=== PATIENT | female | born 1985 | race Asian ===

== ENCOUNTER 2020-11-10 10:06 | Outpatient (REF) | payer OTHER, SELFPAY ==
[2020-11-10 14:24] LABS: CT PCR NOT DETECTED (Not Detect.); NG PCR NOT DETECTED (Not Detect.)
[2020-11-11 09:52] LABS: BV Int Neg Control Negative (Negative); BV Int Pos Control Positive (Positive)
[2020-11-13 01:32] LABS: HPV mRNA E6/E7 rflx Not Detected (Not Detected)
== END 2020-11-10 10:07 | disposition home or self-care (01) ==
LOC: HO.LAB 10:06
PROVIDERS: Visit Provider Obstetrics & Gynecology
DX: Z01.419 Encounter for gynecological examination (general) (routine) without abnormal findings (principal); Z11.51 Encounter for screening for human papillomavirus (HPV); Z11.3 Encounter for screening for infections with a predominantly sexual mode of transmission; Z20.2 Contact with and (suspected) exposure to infections with a predominantly sexual mode of transmission; Z97.5 Presence of (intrauterine) contraceptive device
CPT/HCPCS: 36415; 87480; 87491; 87510; 87591; 87624; 87660; 88142

== ENCOUNTER 2021-09-22 10:51 | Outpatient (REF) | payer OTHER, SELFPAY ==
[2021-09-23 00:44] LABS: CT PCR NOT DETECTED (Not Detect.); NG PCR NOT DETECTED (Not Detect.)
== END 2021-09-22 10:52 | disposition home or self-care (01) ==
LOC: HO.LAB 10:51
PROVIDERS: PCP Internal Medicine; Visit Provider Advanced Practice Midwife
DX: Z01.419 Encounter for gynecological examination (general) (routine) without abnormal findings (principal); Z20.2 Contact with and (suspected) exposure to infections with a predominantly sexual mode of transmission
CPT/HCPCS: 87491; 87591

== ENCOUNTER → 2021-10-18 11:44 | Outpatient (BNVA) | payer OTHER, SELFPAY | PROVIDERS: PCP Internal Medicine; Visit Provider Obstetrics & Gynecology | DX: Z30.433 Encounter for removal and reinsertion of intrauterine contraceptive device (principal) | CPT/HCPCS: 58300; 58301; J7298 ==

== ENCOUNTER 2022-08-21 09:54 | Emergency (ER) | payer OTHER, SELFPAY ==
[2022-08-21 10:44] VITALS: BP 117/75; PULSE 82; RESP 18; TEMP 36.5; O2SAT 97; BMI 34.0
--- NOTE | 2022-08-21 12:23 | ED_ITS ---
HPI - Extremity Injury (Lower) General Chief Complaint: Extremity Injury, Lower Stated Complaint: L ankle inj Time Seen by Provider: 08/21/22 11:51 Source: patient Mode of arrival: wheelchair History of Present Illness HPI Narrative: 36-year-old female with no significant past medical history presenting to the ED complaining of left ankle/foot pain and swelling s/p twisting on last stair 2 days ago. Reports internally twisted ankle, fell to ground, denies head trauma or LOC. Has been minimally ambulatory since the incident. Denies numbness, tingling, weakness, injury to other area MD complaint: ankle injury Related Data Home Medications Medication Instructions Recorded Confirmed levonorgestrel 20 mcg/24 hours (8 intrauterine 06/20/22 08/03/22 yrs) 52 mg intrauterine device (Mirena) Previous Rx's Medication Instructions Recorded azithromycin 250 mg tablet See Rx Instructions PO .COMPLEX #6 08/03/22 (Zithromax Z-Rian) tabs prednisone 20 mg tablet 40 mg PO DAILY 5 days #10 tabs 08/03/22 Allergies Allergy/AdvReac Type Severity Reaction Status Date / Time Penicillins Allergy Mild HIVES Verified 08/21/22 10:43 Review of Systems Review of Systems: Constitutional: No Fever, No Chills ENT/Mouth: No Ear Pain, No Nasal Congestion, No Sinus Pain, No Hoarseness, No sore throat, No Rhinorrhea, No Swallowing Difficulty Cardiovascular: No Chest Pain, No SOB Respiratory: No Cough, No Sputum, No Wheezing Gastrointestinal: No Nausea, No Vomiting, No Diarrhea, No Constipation, No Abdominal pain Genitourinary: No Dysuria, No Urinary Frequency, No Hematuria, No Flank Pain Musculoskeletal: + joint pain, No Myalgias, + Joint Swelling Skin: No Skin Lesions, No rash Neuro: No Weakness, No Numbness, No Paresthesias Yes all other systems are reviewed and are negative Constitutional: Constitutional: Reports as per [facility] Past Medical History Attestation statement: The following information was validated with the patient. Family History Family History Paternal Grandmother Breast cancer Mother Substance use disorder Mental health disorder Father Mental health disorder Social History Social History Housing: House Alcohol intake: current Alcohol intake frequency: a few times a week Patient Tobacco Use Status: Current everyday Tobacco user Cigarettes Per Day: 10 e-Cigarette/Vaping Use: Currently Using Second Hand Smoke Exposure: No Advance Directives: No Advance Directives Information Provided: No service: No Current occupational status: employed Current occupation: [employer] Current occupational exposures/hazards: No Gender identity: Female Cognitive needs: No Hearing needs: No Vision needs: No Physical Exam Vital Signs: Vital Signs: Last Vital Signs Temp 97.7 F 08/21/22 10:44 Pulse 82 08/21/22 10:44 Resp 18 08/21/22 10:44 BP 117/75 08/21/22 10:44 Pulse Ox 97 08/21/22 10:44 O2 Del Method 08/21/22 10:44 BMI result Body Mass Index 34.0 Const: General: cooperative, healthy appearing and no acute distress Orientation/consciousness: patient oriented x3 Limitations: no limitations HEENT: Head: Yes normal to inspection and Yes atraumatic Ears: hearing grossly normal bilaterally General nose exam: Normal external nose present Face and sinus: Yes normal facial exam Eyes: General: appearance normal, both eyes and all related structures EOM: EOMs intact bilaterally Neck: Neck: Yes normal visual inspection and Yes no meningeal signs Resp: Effort & Inspection: normal respiratory effort and no respiratory distress Cardio: Rate: regular rate Heart sounds: S1 normal heart sound present and S2 normal heart sound present Peripheral pulses: dorsalis pedis present Skin: Rashes: no rashes Wounds: no wounds Neuro: General: patient oriented x3, tone normal and no meningeal signs Gait exam (Neuro): Normal gait present Extrem: Other: Left ankle/proximal foot with noted swelling and ecchymosis. Diffusely tender to palpation. Limited ROM ankle secondary to pain. Neurovascularly intact. Sensation intact to light touch. Knee nontender Course Course Course Narrative: XR foot LT min 3V/XR ankle LT min 3V IMPRESSION: No radiographic evidence of acute fracture malalignment in the ankle or foot. If this persistent clinical symptoms/clinical concern, recommend short-term follow-up radiographs. >> patient placed in Aircast and supplied with crutches Results discussed with patient including worrisome signs and symptoms and strict return precautions, and when to return to the emergency department. They verbalized understanding and feel safe for discharge at this time. Medical Decision Making Medical Decision Making MDM Narrative: 36-year-old female with no significant past medical history presenting to the ED complaining of left ankle/foot pain and swelling s/p twisting on last stair 2 days ago. On exam vital signs stable, NAD, nontoxic appearing, physical exam as above. Concern for ankle fracture versus sprain. No evidence of infection Plan: X-ray Differential Diagnosis Differential Diagnoses: The differential diagnosis associated with the presentation includes As above Procedures Orthopedic Splinting/Casting Injury #1: Side: left Lower Extremity Injury Location: ankle Lower Extremity Immobilizer: AirCast Other Orthopedic Equipment: crutches Discharge Plan Discharge Clinical Impression: Ankle sprain and strain Patient Disposition: Home, Self-Care Instructions: Ankle Sprain (ED), R.I.C.E. Treatment (ED) Additional Instructions: Your x-ray does not show a fracture. You have an ankle sprain Wear Aircast for comfort and stability. Use crutches as needed. Bear weight as tolerated. Take Tylenol and Motrin for pain and swelling. Ice and elevate. Follow up with her doctor If symptoms persist or worsen, area begins to look infected, pain becomes unbearable return to the ED Prescriptions: No Action azithromycin [Zithromax Z-Rian] 250 mg tablet See Rx Instructions PO .COMPLEX Qty: 6 0RF Rx Instructions: For 250 mg dose pack: take 500 mg today (day 1), then 250 mg for 4 days (days 2-5) PO prednisone 20 mg tablet 40 mg PO DAILY 5 Days Qty: 10 0RF Mirena 20 mcg/24 hours (8 yrs) 52 mg intrauterine device intrauterine Mirena 20 mcg/24 hours (7 yrs) 52 mg intrauterine device 1 device intrauterine ONCE Qty: 1 0RF Referrals: Eloisa Rodríguez MD [Primary Care Provider] - 1 week
== END 2022-08-21 12:42 | disposition home or self-care (01) ==
PROVIDERS: Emergency Provider Emergency Medicine; PCP Internal Medicine
DX: S93.402A Sprain of unspecified ligament of left ankle, initial encounter (principal); S96.912A Strain of unspecified muscle and tendon at ankle and foot level, left foot, initial encounter; W10.8XXA Fall (on) (from) other stairs and steps, initial encounter; F17.210 Nicotine dependence, cigarettes, uncomplicated; Y93.89 Activity, other specified; Y92.009 Unspecified place in unspecified non-institutional (private) residence as the place of occurrence of the external cause; Y99.9 Unspecified external cause status
CPT/HCPCS: 73610; 73630; 99283

== ENCOUNTER 2022-10-11 16:31 | Emergency (ER) | payer OTHER, SELFPAY ==
--- NOTE | 2022-10-11 16:45 | ED.PSYCH ---
HPI - Psych General Chief Complaint: Psychiatric Symptoms <Mary Sullivan CNP - Last Filed: 10/11/22 16:49> Stated Complaint: crisi need meds <Mary Sullivan CNP - Last Filed: 10/11/22 16:49> Time Seen by Provider: 10/11/22 19:56 <Mary Sullivan CNP - Last Filed: 10/11/22 16:49> Source: patient <Guzman Muhammad MD - Last Filed: 10/11/22 20:31> Mode of arrival: ambulatory <Guzman Muhammad MD - Last Filed: 10/11/22 20:31> Limitations: no limitations <Guzman Muhammad MD - Last Filed: 10/11/22 20:31> History of Present Illness HPI Narrative: Patient is a 36-year-old female who presents to emergency department for increasing anxiety. She reports that she was Diagnosed with bipolar disorder in 2019. She states increased stress at work, causing her mood to feel very elevated, ?scrambled?. Increasing stressors for the past 3-4 months, but significantly worse over the past few weeks. Denies SI/ HI/hallucination. Anxiety is becoming overwhelming. She is not currently prescribed any medications for over 1 year. Does not currently have a therapist or psychiatrist. She would like assistance in establishing care. She went to the walk-in clinic in [facility] associated with PCP office, and was advised to come to the emergency department on for assistants. She states ?I feel like I can not function?. Had a prior mental hospitalization in 2019 for a week. <Guzman Muhammad MD - Last Filed: 10/11/22 20:31> Related Data Home Medications: Home Medications Medication Instructions Recorded Confirmed No Known Home Meds 10/11/22 10/11/22 <Mary Sullivan CNP - Last Filed: 10/11/22 16:49> Allergies/Adverse Reactions: Allergies Allergy/AdvReac Type Severity Reaction Status Date / Time Penicillins Allergy Mild HIVES Verified 10/11/22 15:37 <Mary Sullivan CNP - Last Filed: 10/11/22 16:49> Review of Systems Review of Systems: All other systems are reviewed and are negative Constitutional: Reports as per HPI and Reports no additional constitutional complaints Eyes: Reports as per HPI and Reports no additional eye complaints Reports system reviewed and no additional complaints, except as documented Cardiovascular: Reports as per HPI and Reports no additional cardiovascular complaints Respiratory: Reports as per HPI and Reports no additional respiratory complaints Gastrointestinal: Reports as per HPI and Reports no additional gastrointestinal complaints Genitourinary: Reports no additional female genitourinary complaints Musculoskeletal: Reports no additional musculoskeletal complaints Skin/Breast: Reports system reviewed and no additional complaints, except as docu Psychiatric: Reports no additional psychiatric complaints Endocrine: Reports no additional endocrine complaints Hematologic/Lymphatic: Reports no additional hematologic/lymphatic complaints Allergic/Immunologic: Reports no additional allergic/immunologic complaints Reports system reviewed and no additional complaints, except as documented and Reports Abnormal speech present <Guzman Muhammad MD - Last Filed: 10/11/22 20:31> [facility] Family History Family History: Family History Paternal Grandmother Breast cancer Mother Substance use disorder Mental health disorder Father Mental health disorder <Mary Sullivan CNP - Last Filed: 10/11/22 16:49> Social History Social History: Social History Housing: House Alcohol intake: current Alcohol intake frequency: a few times a week Patient Tobacco Use Status: Current everyday Tobacco user Cigarettes Per Day: 10 e-Cigarette/Vaping Use: Currently Using Second Hand Smoke Exposure: No Advance Directives: No Advance Directives Information Provided: No Healthcare Proxy: No Guardian: No service: No Current occupational status: employed Current occupation: [employer] Current occupational exposures/hazards: No Gender identity: Female Cognitive needs: No Hearing needs: No Vision needs: No <Mary Sullivan CNP - Last Filed: 10/11/22 16:49> Physical Exam Vital Signs: Vital Signs: Last Vital Signs Temp 98 F 10/11/22 16:47 Pulse 83 10/11/22 16:47 Resp 18 10/11/22 16:47 BP 147/87 H 10/11/22 16:47 Pulse Ox 98 10/11/22 16:47 O2 Del Method 10/11/22 16:47 BMI result Body Mass Index 34.0 <Mary Sullivan CNP - Last Filed: 10/11/22 16:49> Vital Signs: Last Vital Signs Temp 98 F 10/11/22 16:47 Pulse 83 10/11/22 16:47 Resp 18 10/11/22 16:47 BP 147/87 H 10/11/22 16:47 Pulse Ox 98 10/11/22 16:47 O2 Del Method 10/11/22 16:47 BMI result Body Mass Index 34.0 Vital signs have been reviewed as appeared to be correct. Blood pressure normal. Heart rate normal. Respiration rate normal. Temperature normal. Oxygen saturation normal. <Guzman Muhammad MD - Last Filed: 10/11/22 20:31> Vital Signs: Last Vital Signs Temp 98 F 10/11/22 16:47 Pulse 83 10/11/22 16:47 Resp 18 10/11/22 16:47 BP 147/87 H 10/11/22 16:47 Pulse Ox 98 10/11/22 16:47 O2 Del Method 10/11/22 16:47 BMI result Body Mass Index 34.0 <Lyla Grissom MD - Last Filed: 10/12/22 05:20> Appearance: Alert. Oriented X3. No acute distress. Head: Normal external exam. Normocephalic. Atraumatic. No Bledsoe signs noted. No raccoon eyes noted Eyes: PERRLA. EOMI. Conjunctiva and sclera normal. Eyelids normal. ENT: TM's Normal. Pharynx normal. Uvula midline. Moist mucous membranes. No trismus noted. No drooling noted. No muffled voice noted. Neck: Normal inspection. Neck supple. FROM. No adenopathy. Thyroid Normal. No meningeal signs. No neck mass noted. CVS: Normal heart rate and rhythm. Heart sound normal. No murmurs noted. Pulses normal throughout. Respiratory: No respiratory distress. Painless inspiration. Breath sounds normal. No wheezes/rales/rhonchi noted. Chest nontender. No accessory muscle usage noted or decreased air movement noted. Abdomen: Soft and nontender. Bowel sounds normal in all 4 quadrants. No distention noted. No organomegaly noted. No visible injury noted. Back: No CVA tenderness. Full range of motion noted. Skin: Skin warm and dry. Normal skin color. Normal skin turgor. No rashes/lesions/lacerations noted. Extremities: No lower extremity edema. Extremities exhibit normal range of motion. Extremities nontender. Neuro: Oriented X 3. Cranial nerve exam: II-XII are grossly intact No motor deficit. No sensory deficit. Reflexes normal. Patient Orientation: Person, Place, Time and Situation, okay hygiene and grooming. Fair eye contact, attentive, no tics or tremors. Level of Consciousness: Awake, Appropriate and Alert Patient Behavior: Appropriate, Guarded, Cooperative and Anxious Mood Description: Constricted, Blunted and Apprehensive Affect Description: Constricted, Blunted and Apprehensive Patient Cognition Impaired: No Ability to Follow Directions: Excellent Speech Pattern: Clear, Appropriate and Spontaneous Speech, nonpressured, spontaneous with regular rate and rhythm, normal volume and prosody. No dysarthria. Memory Description: Intact, Immediate Intact and Short Term Intact Hallucinations: None Delusions: Not Present Thought Process: Intact Thought Content: positive for Intact, positive for Logical, denies Suicidal Ideation and denies Homicidal Ideation. Depressive Symptoms: Not present. Judgement and Insight: Limited but adequate. <Guzman Muhammad MD - Last Filed: 10/11/22 20:31> Course Course Course Narrative: This is an RME: Additional HPI, ROS, PE not included below will be deferred to primary provider. Patient is a 36-year-old female who presents to emergency department for increasing anxiety. She reports that she was Diagnosed with bipolar disorder in 2019. She states increased stress at work, causing her mood to feel very elevated, ?scrambled?. Increasing stressors for the past 3-4 months, but significantly worse over the past few weeks. Denies SI/ HI. Anxiety is becoming overwhelming. She is not currently prescribed any medications for over 1 year. Does not currently have a therapist or psychiatrist. She would like assistance in establishing care. She went to the walk-in clinic in [facility] associated with PCP office, and was advised to come to the emergency department on for assistants. She states ?I feel like I can not function?. PE: She is calm and cooperative during triage. No acute distress. Plan: Referral to care team <Mary Sullivan CNP - Last Filed: 10/11/22 16:49> Medications Administered Discontinued Medications Generic Name Dose Route Start Last Admin Trade Name Freq PRN Reason Stop Dose Admin Olanzapine 2.5 mg 10/11/22 20:17 10/11/22 21:28 Olanzapine 2.5 Mg Tablet PO 10/11/22 20:18 2.5 mg ONCE ONE Administration <Mary Sullivan CNP - Last Filed: 10/11/22 16:49> Medications Administered Discontinued Medications Generic Name Dose Route Start Last Admin Trade Name Freq PRN Reason Stop Dose Admin Olanzapine 2.5 mg 10/11/22 20:17 10/11/22 21:28 Olanzapine 2.5 Mg Tablet PO 10/11/22 20:18 2.5 mg ONCE ONE Administration <Guzman Muhammad MD - Last Filed: 10/11/22 20:31> Medications Administered Discontinued Medications Generic Name Dose Route Start Last Admin Trade Name Freq PRN Reason Stop Dose Admin Olanzapine 2.5 mg 10/11/22 20:17 10/11/22 21:28 Olanzapine 2.5 Mg Tablet PO 10/11/22 20:18 2.5 mg ONCE ONE Administration <Lyla Grissom MD - Last Filed: 10/12/22 05:20> Medical Decision Making Medical Decision Making MDM Narrative: -patient was re-evaluated by the care team at 05:20. Patient is not suicidal or homicidal, patient has been off of meds for 2+ years. At this time, the care team spoke with the patient and they agree that the best course of action for the patient is to discharge her home early this morning, patient will go to a partial program. <Lyla Grissom MD - Last Filed: 10/12/22 05:20> Differential Diagnosis Differential Diagnoses: The differential diagnosis associated with the presentation includes (Psychosis, anxiety, medical clearance, substance abuse.) <Guzman Muhammad MD - Last Filed: 10/11/22 20:31> Lab Data Result Diagrams: 10/11/22 20:23 10/11/22 00:52 <Mary Sullivan CNP - Last Filed: 10/11/22 16:49> Labs: Lab Results 10/11/22 10/11/22 10/11/22 Range/Units 00:52 20: 20:23 WBC 10.7 (4.8-10.8) X10*3/uL RBC 4.82 (4.20-5.50) X10*6/uL Hgb 14.1 (12.0-16.0) g/dl Hct 41.9 (37.0-47.0) % MCV 86.9 (80.0-98.0) fL MCH 29.3 (27.0-33.0) pg MCHC 33.7 (31.0-35.0) g/dl RDW 12.5 (11.0-16.0) % Plt Count 346 (160-400) X10*3/uL MPV 8.6 L (9.4-12.3) fL Immature Gran % (Auto) 0.3 (0.0-0.4) % Neut % (Auto) 56.4 (45-73) % Lymph % (Auto) 34.4 (20-40) % [place] % (Auto) 6.1 (2-11) % Eos % (Auto) 2.1 (0-4) % Baso % (Auto) 0.7 (0-2) % Lymph # (Auto) 3.7 (1.2-4.9) X10*3/uL [place] # (Auto) 0.7 (0.1-1.2) X10*3/uL Eos # (Auto) 0.2 (0.0-0.4) X10*3/uL Baso # (Auto) 0.1 (0.0-0.2) X10*3/uL Abs Immat Gran (auto) 0.03 (0.00-0.03) X10*3/uL Absolute Neuts (auto) 6.1 (2.0-8.3) x10*3/uL Absolute Nucleated RBC 0.000 (0.0-0.012) X10*3/uL Nucleated RBC % (auto) 0.0 (0.0-0.2) /100WBC Sodium 140 (135-145) mmol/L Potassium 4.0 (3.3-5.1) mmol/L Chloride 108 (96-108) mmol/L Carbon Dioxide 22 (22-29) mmol/L Anion Gap 14 (12-20) BUN 8 L (9-16) mg/dL Creatinine 0.87 (0.5-1.4) mg/dL Estim Creat Clear Calc 87.4 Estimated GFR > 60 Random Glucose 84 (60-115) mg/dL Calcium 9.2 (8.4-10.2) mg/dL Total Bilirubin 0.3 (0.0-1.0) mg/dL AST 15 (5-31) U/L ALT 18 (0-31) U/L Alkaline Phosphatase 47 (39-117) U/L Total Protein 6.9 (6.5-8.0) g/dL Albumin 4.3 (3.5-5.0) g/dL Urine Color Urine Appearance Urine pH (5.0-9.0) Ur Specific [place] (1.005-1.025) Urine Protein (Neg-Trace) mg/dL Urine Glucose (UA) (Negative) mg/dL Urine Ketones (Negative) mg/dL Urine Blood (Negative) Urine Nitrite (Negative) Ur Leukocyte Esterase (Negative) Urine RBC (0-2) /HPF Urine WBC (0-5) /HPF Ur Squamous Epith Cells (0-2) /HPF Urine Bacteria (None Seen) Hyaline Casts (0-2) /LPF Urine Test (NEGATIVE) Urine Opiates Screen (Not Detect) Urine Fentanyl Screen (Not Detect) Ur Barbiturates Screen (Not Detect) Ur Phencyclidine Scrn (Not Detect) Ur Amphetamines Screen (Not Detect) U Benzodiazepines Scrn (Not Detect) Urine Cocaine Screen (Not Detect) U Marijuana (THC) Screen (Not Detect) Ethyl Alcohol mg/dL COVID-19 ([facility]TE) Negative (Negative) COVID-19 Clin Com See Note 10/11/22 10/11/22 10/11/22 Range/Units 20:23 21:52 21:52 WBC (4.8-10.8) X10*3/uL RBC (4.20-5.50) X10*6/uL Hgb (12.0-16.0) g/dl Hct (37.0-47.0) % MCV (80.0-98.0) fL MCH (27.0-33.0) pg MCHC (31.0-35.0) g/dl RDW (11.0-16.0) % Plt Count (160-400) X10*3/uL MPV (9.4-12.3) fL Immature Gran % (Auto) (0.0-0.4) % Neut % (Auto) (45-73) % Lymph % (Auto) (20-40) % [place] % (Auto) (2-11) % Eos % (Auto) (0-4) % Baso % (Auto) (0-2) % Lymph # (Auto) (1.2-4.9) X10*3/uL [place] # (Auto) (0.1-1.2) X10*3/uL Eos # (Auto) (0.0-0.4) X10*3/uL Baso # (Auto) (0.0-0.2) X10*3/uL Abs Immat Gran (auto) (0.00-0.03) X10*3/uL Absolute Neuts (auto) (2.0-8.3) x10*3/uL Absolute Nucleated RBC (0.0-0.012) X10*3/uL Nucleated RBC % (auto) (0.0-0.2) /100WBC Sodium (135-145) mmol/L Potassium (3.3-5.1) mmol/L Chloride (96-108) mmol/L Carbon Dioxide (22-29) mmol/L Anion Gap (12-20) BUN (9-16) mg/dL Creatinine (0.5-1.4) mg/dL Estim Creat Clear Calc Estimated GFR Random Glucose (60-115) mg/dL Calcium (8.4-10.2) mg/dL Total Bilirubin (0.0-1.0) mg/dL AST (5-31) U/L ALT (0-31) U/L Alkaline Phosphatase (39-117) U/L Total Protein (6.5-8.0) g/dL Albumin (3.5-5.0) g/dL Urine Color Yellow Urine Appearance Clear Urine pH 6.0 (5.0-9.0) Ur Specific [place] 1.010 (1.005-1.025) Urine Protein Negative (Neg-Trace) mg/dL Urine Glucose (UA) Negative (Negative) mg/dL Urine Ketones Negative (Negative) mg/dL Urine Blood Negative (Negative) Urine Nitrite Negative (Negative) Ur Leukocyte Esterase Moderate (2+) H (Negative) Urine RBC 0-2 (0-2) /HPF Urine WBC 11-20 H (0-5) /HPF Ur Squamous Epith Cells 6-10 (0-2) /HPF Urine Bacteria Trace (None Seen) Hyaline Casts 0-2 (0-2) /LPF Urine Test NEGATIVE (NEGATIVE) Urine Opiates Screen (Not Detect) Urine Fentanyl Screen (Not Detect) Ur Barbiturates Screen (Not Detect) Ur Phencyclidine Scrn (Not Detect) Ur Amphetamines Screen (Not Detect) U Benzodiazepines Scrn (Not Detect) Urine Cocaine Screen (Not Detect) U Marijuana (THC) Screen (Not Detect) Ethyl Alcohol < 10 mg/dL COVID-19 ([facility]TE) (Negative) COVID-19 Clin Com 10/11/22 Range/Units 21:52 WBC (4.8-10.8) X10*3/uL RBC (4.20-5.50) X10*6/uL Hgb (12.0-16.0) g/dl Hct (37.0-47.0) % MCV (80.0-98.0) fL MCH (27.0-33.0) pg MCHC (31.0-35.0) g/dl RDW (11.0-16.0) % Plt Count (160-400) X10*3/uL MPV (9.4-12.3) fL Immature Gran % (Auto) (0.0-0.4) % Neut % (Auto) (45-73) % Lymph % (Auto) (20-40) % [place] % (Auto) (2-11) % Eos % (Auto) (0-4) % Baso % (Auto) (0-2) % Lymph # (Auto) (1.2-4.9) X10*3/uL [place] # (Auto) (0.1-1.2) X10*3/uL Eos # (Auto) (0.0-0.4) X10*3/uL Baso # (Auto) (0.0-0.2) X10*3/uL Abs Immat Gran (auto) (0.00-0.03) X10*3/uL Absolute Neuts (auto) (2.0-8.3) x10*3/uL Absolute Nucleated RBC (0.0-0.012) X10*3/uL Nucleated RBC % (auto) (0.0-0.2) /100WBC Sodium (135-145) mmol/L Potassium (3.3-5.1) mmol/L Chloride (96-108) mmol/L Carbon Dioxide (22-29) mmol/L Anion Gap (12-20) BUN (9-16) mg/dL Creatinine (0.5-1.4) mg/dL Estim Creat Clear Calc Estimated GFR Random Glucose (60-115) mg/dL Calcium (8.4-10.2) mg/dL Total Bilirubin (0.0-1.0) mg/dL AST (5-31) U/L ALT (0-31) U/L Alkaline Phosphatase (39-117) U/L Total Protein (6.5-8.0) g/dL Albumin (3.5-5.0) g/dL Urine Color Urine Appearance Urine pH (5.0-9.0) Ur Specific [place] (1.005-1.025) Urine Protein (Neg-Trace) mg/dL Urine Glucose (UA) (Negative) mg/dL Urine Ketones (Negative) mg/dL Urine Blood (Negative) Urine Nitrite (Negative) Ur Leukocyte Esterase (Negative) Urine RBC (0-2) /HPF Urine WBC (0-5) /HPF Ur Squamous Epith Cells (0-2) /HPF Urine Bacteria (None Seen) Hyaline Casts (0-2) /LPF Urine Test (NEGATIVE) Urine Opiates Screen Not Detected (Not Detect) Urine Fentanyl Screen Not Detected (Not Detect) Ur Barbiturates Screen Not Detected (Not Detect) Ur Phencyclidine Scrn Not Detected (Not Detect) Ur Amphetamines Screen Not Detected (Not Detect) U Benzodiazepines Scrn Not Detected (Not Detect) Urine Cocaine Screen Not Detected (Not Detect) U Marijuana (THC) Screen POSITIVE H (Not Detect) Ethyl Alcohol mg/dL COVID-19 ([facility]TE) (Negative) COVID-19 Clin Com <Mary Sullivan, NABILA - Last Filed: 10/11/22 16:49> Lab Results 10/11/22 10/11/22 10/11/22 Range/Units 00:52 20:23 20:23 WBC 10.7 (4.8-10.8) X10*3/uL RBC 4.82 (4.20-5.50) X10*6/uL Hgb 14.1 (12.0-16.0) g/dl Hct 41.9 (37.0-47.0) % MCV 86.9 (80.0-98.0) fL MCH 29.3 (27.0-33.0) pg MCHC 33.7 (31.0-35.0) g/dl RDW 12.5 (11.0-16.0) % Plt Count 346 (160-400) X10*3/uL MPV 8.6 L (9.4-12.3) fL Immature Gran % (Auto) 0.3 (0.0-0.4) % Neut % (Auto) 56.4 (45-73) % Lymph % (Auto) 34.4 (20-40) % [place] % (Auto) 6.1 (2-11) % Eos % (Auto) 2.1 (0-4) % Baso % (Auto) 0.7 (0-2) % Lymph # (Auto) 3.7 (1.2-4.9) X10*3/uL [place] # (Auto) 0.7 (0.1-1.2) X10*3/uL Eos # (Auto) 0.2 (0.0-0.4) X10*3/uL Baso # (Auto) 0.1 (0.0-0.2) X10*3/uL Abs Immat Gran (auto) 0.03 (0.00-0.03) X10*3/uL Absolute Neuts (auto) 6.1 (2.0-8.3) x10*3/uL Absolute Nucleated RBC 0.000 (0.0-0.012) X10*3/uL Nucleated RBC % (auto) 0.0 (0.0-0.2) /100WBC Sodium 140 (135-145) mmol/L Potassium 4.0 (3.3-5.1) mmol/L Chloride 108 (96-108) mmol/L Carbon Dioxide 22 (22-29) mmol/L Anion Gap 14 (12-20) BUN 8 L (9-16) mg/dL Creatinine 0.87 (0.5-1.4) mg/dL Estim Creat Clear Calc 87.4 Estimated GFR > 60 Random Glucose 84 (60-115) mg/dL Calcium 9.2 (8.4-10.2) mg/dL Total Bilirubin 0.3 (0.0-1.0) mg/dL AST 15 (5-31) U/L ALT 18 (0-31) U/L Alkaline Phosphatase 47 (39-117) U/L Total Protein 6.9 (6.5-8.0) g/dL Albumin 4.3 (3.5-5.0) g/dL Urine Color Urine Appearance Urine pH (5.0-9.0) Ur Specific [place] (1.005-1.025) Urine Protein (Neg-Trace) mg/dL Urine Glucose (UA) (Negative) mg/dL Urine Ketones (Negative) mg/dL Urine Blood (Negative) Urine Nitrite (Negative) Ur Leukocyte Esterase (Negative) Urine RBC (0-2) /HPF Urine WBC (0-5) /HPF Ur Squamous Epith Cells (0-2) /HPF Urine Bacteria (None Seen) Hyaline Casts (0-2) /LPF Urine Test (NEGATIVE) Urine Opiates Screen (Not Detect) Urine Fentanyl Screen (Not Detect) Ur Barbiturates Screen (Not Detect) Ur Phencyclidine Scrn (Not Detect) Ur Amphetamines Screen (Not Detect) U Benzodiazepines Scrn (Not Detect) Urine Cocaine Screen (Not Detect) U Marijuana (THC) Screen (Not Detect) Ethyl Alcohol mg/dL COVID-19 ([facility]TE) Negative (Negative) COVID-19 Clin Com See Note 10/11/22 10/11/22 10/11/22 Range/Units 20:23 21:52 21:52 WBC (4.8-10.8) X10*3/uL RBC (4.20-5.50) X10*6/uL Hgb (12.0-16.0) g/dl Hct (37.0-47.0) % MCV (80.0-98.0) fL MCH (27.0-33.0) pg MCHC (31.0-35.0) g/dl RDW (11.0-16.0) % Plt Count (160-400) X10*3/uL MPV (9.4-12.3) fL Immature Gran % (Auto) (0.0-0.4) % Neut % (Auto) (45-73) % Lymph % (Auto) (20-40) % [place] % (Auto) (2-11) % Eos % (Auto) (0-4) % Baso % (Auto) (0-2) % Lymph # (Auto) (1.2-4.9) X10*3/uL [place] # (Auto) (0.1-1.2) X10*3/uL Eos # (Auto) (0.0-0.4) X10*3/uL Baso # (Auto) (0.0-0.2) X10*3/uL Abs Immat Gran (auto) (0.00-0.03) X10*3/uL Absolute Neuts (auto) (2.0-8.3) x10*3/uL Absolute Nucleated RBC (0.0-0.012) X10*3/uL Nucleated RBC % (auto) (0.0-0.2) /100WBC Sodium (135-145) mmol/L Potassium (3.3-5.1) mmol/L Chloride (96-108) mmol/L Carbon Dioxide (22-29) mmol/L Anion Gap (12-20) BUN (9-16) mg/dL Creatinine (0.5-1.4) mg/dL Estim Creat Clear Calc Estimated GFR Random Glucose (60-115) mg/dL Calcium (8.4-10.2) mg/dL Total Bilirubin (0.0-1.0) mg/dL AST (5-31) U/L ALT (0-31) U/L Alkaline Phosphatase (39-117) U/L Total Protein (6.5-8.0) g/dL Albumin (3.5-5.0) g/dL Urine Color Yellow Urine Appearance Clear Urine pH 6.0 (5.0-9.0) Ur Specific [place] 1.010 (1.005-1.025) Urine Protein Negative (Neg-Trace) mg/dL Urine Glucose (UA) Negative (Negative) mg/dL Urine Ketones Negative (Negative) mg/dL Urine Blood Negative (Negative) Urine Nitrite Negative (Negative) Ur Leukocyte Esterase Moderate (2+) H (Negative) Urine RBC 0-2 (0-2) /HPF Urine WBC 11-20 H (0-5) /HPF Ur Squamous Epith Cells 6-10 (0-2) /HPF Urine Bacteria Trace (None Seen) Hyaline Casts 0-2 (0-2) /LPF Urine Test NEGATIVE (NEGATIVE) Urine Opiates Screen (Not Detect) Urine Fentanyl Screen (Not Detect) Ur Barbiturates Screen (Not Detect) Ur Phencyclidine Scrn (Not Detect) Ur Amphetamines Screen (Not Detect) U Benzodiazepines Scrn (Not Detect) Urine Cocaine Screen (Not Detect) U Marijuana (THC) Screen (Not Detect) Ethyl Alcohol < 10 mg/dL COVID-19 ([facility]TE) (Negative) COVID-19 Clin Com 10/11/22 Range/Units 21:52 WBC (4.8-10.8) X10*3/uL RBC (4.20-5.50) X10*6/uL Hgb (12.0-16.0) g/dl Hct (37.0-47.0) % MCV (80.0-98.0) fL MCH (27.0-33.0) pg MCHC (31.0-35.0) g/dl RDW (11.0-16.0) % Plt Count (160-400) X10*3/uL MPV (9.4-12.3) fL Immature Gran % (Auto) (0.0-0.4) % Neut % (Auto) (45-73) % Lymph % (Auto) (20-40) % [place] % (Auto) (2-11) % Eos % (Auto) (0-4) % Baso % (Auto) (0-2) % Lymph # (Auto) (1.2-4.9) X10*3/uL [place] # (Auto) (0.1-1.2) X10*3/uL Eos # (Auto) (0.0-0.4) X10*3/uL Baso # (Auto) (0.0-0.2) X10*3/uL Abs Immat Gran (auto) (0.00-0.03) X10*3/uL Absolute Neuts (auto) (2.0-8.3) x10*3/uL Absolute Nucleated RBC (0.0-0.012) X10*3/uL Nucleated RBC % (auto) (0.0-0.2) /100WBC Sodium (135-145) mmol/L Potassium (3.3-5.1) mmol/L Chloride (96-108) mmol/L Carbon Dioxide (22-29) mmol/L Anion Gap (12-20) BUN (9-16) mg/dL Creatinine (0.5-1.4) mg/dL Estim Creat Clear Calc Estimated GFR Random Glucose (60-115) mg/dL Calcium (8.4-10.2) mg/dL Total Bilirubin (0.0-1.0) mg/dL AST (5-31) U/L ALT (0-31) U/L Alkaline Phosphatase (39-117) U/L Total Protein (6.5-8.0) g/dL Albumin (3.5-5.0) g/dL Urine Color Urine Appearance Urine pH (5.0-9.0) Ur Specific [place] (1.005-1.025) Urine Protein (Neg-Trace) mg/dL Urine Glucose (UA) (Negative) mg/dL Urine Ketones (Negative) mg/dL Urine Blood (Negative) Urine Nitrite (Negative) Ur Leukocyte Esterase (Negative) Urine RBC (0-2) /HPF Urine WBC (0-5) /HPF Ur Squamous Epith Cells (0-2) /HPF Urine Bacteria (None Seen) Hyaline Casts (0-2) /LPF Urine Test (NEGATIVE) Urine Opiates Screen Not Detected (Not Detect) Urine Fentanyl Screen Not Detected (Not Detect) Ur Barbiturates Screen Not Detected (Not Detect) Ur Phencyclidine Scrn Not Detected (Not Detect) Ur Amphetamines Screen Not Detected (Not Detect) U Benzodiazepines Scrn Not Detected (Not Detect) Urine Cocaine Screen Not Detected (Not Detect) U Marijuana (THC) Screen POSITIVE H (Not Detect) Ethyl Alcohol mg/dL COVID-19 ([facility]) (Negative) COVID-19 Clin Com <Guzman Muhammad MD - Last Filed: 10/11/22 20:31> Lab Results 10/11/22 10/11/22 10/11/22 Range/Units 00:52 20:23 20:23 WBC 10.7 (4.8-10.8) X10*3/uL RBC 4.82 (4.20-5.50) X10*6/uL Hgb 14.1 (12.0-16.0) g/dl Hct 41.9 (37.0-47.0) % MCV 86.9 (80.0-98.0) fL MCH 29.3 (27.0-33.0) pg MCHC 33.7 (31.0-35.0) g/dl RDW 12.5 (11.0-16.0) % Plt Count 346 (160-400) X10*3/uL MPV 8.6 L (9.4-12.3) fL Immature Gran % (Auto) 0.3 (0.0-0.4) % Neut % (Auto) 56.4 (45-73) % Lymph % (Auto) 34.4 (20-40) % [place] % (Auto) 6.1 (2-11) % Eos % (Auto) 2.1 (0-4) % Baso % (Auto) 0.7 (0-2) % Lymph # (Auto) 3.7 (1.2-4.9) X10*3/uL [place] # (Auto) 0.7 (0.1-1.2) X10*3/uL Eos # (Auto) 0.2 (0.0-0.4) X10*3/uL Baso # (Auto) 0.1 (0.0-0.2) X10*3/uL Abs Immat Gran (auto) 0.03 (0.00-0.03) X10*3/uL Absolute Neuts (auto) 6.1 (2.0-8.3) x10*3/uL Absolute Nucleated RBC 0.000 (0.0-0.012) X10*3/uL Nucleated RBC % (auto) 0.0 (0.0-0.2) /100WBC Sodium 140 (135-145) mmol/L Potassium 4.0 (3.3-5.1) mmol/L Chloride 108 (96-108) mmol/L Carbon Dioxide 22 (22-29) mmol/L Anion Gap 14 (12-20) BUN 8 L (9-16) mg/dL Creatinine 0.87 (0.5-1.4) mg/dL Estim Creat Clear Calc 87.4 Estimated GFR > 60 Random Glucose 84 (60-115) mg/dL Calcium 9.2 (8.4-10.2) mg/dL Total Bilirubin 0.3 (0.0-1.0) mg/dL AST 15 (5-31) U/L ALT 18 (0-31) U/L Alkaline Phosphatase 47 (39-117) U/L Total Protein 6.9 (6.5-8.0) g/dL Albumin 4.3 (3.5-5.0) g/dL Urine Color Urine Appearance Urine pH (5.0-9.0) Ur Specific [place] (1.005-1.025) Urine Protein (Neg-Trace) mg/dL Urine Glucose (UA) (Negative) mg/dL Urine Ketones (Negative) mg/dL Urine Blood (Negative) Urine Nitrite (Negative) Ur Leukocyte Esterase (Negative) Urine RBC (0-2) /HPF Urine WBC (0-5) /HPF Ur Squamous Epith Cells (0-2) /HPF Urine Bacteria (None Seen) Hyaline Casts (0-2) /LPF Urine Test (NEGATIVE) Urine Opiates Screen (Not Detect) Urine Fentanyl Screen (Not Detect) Ur Barbiturates Screen (Not Detect) Ur Phencyclidine Scrn (Not Detect) Ur Amphetamines Screen (Not Detect) U Benzodiazepines Scrn (Not Detect) Urine Cocaine Screen (Not Detect) U Marijuana (THC) Screen (Not Detect) Ethyl Alcohol mg/dL COVID-19 (DIAMANTE) Negative (Negative) COVID-19 Clin Com See Note 10/11/22 10/11/22 10/11/22 Range/Units 20:23 21:52 21:52 WBC (4.8-10.8) X10*3/uL RBC (4.20-5.50) X10*6/uL Hgb (12.0-16.0) g/dl Hct (37.0-47.0) % MCV (80.0-98.0) fL MCH (27.0-33.0) pg MCHC (31.0-35.0) g/dl RDW (11.0-16.0) % Plt Count (160-400) X10*3/uL MPV (9.4-12.3) fL Immature Gran % (Auto) (0.0-0.4) % Neut % (Auto) (45-73) % Lymph % (Auto) (20-40) % [place] % (Auto) (2-11) % Eos % (Auto) (0-4) % Baso % (Auto) (0-2) % Lymph # (Auto) (1.2-4.9) X10*3/uL [place] # (Auto) (0.1-1.2) X10*3/uL Eos # (Auto) (0.0-0.4) X10*3/uL Baso # (Auto) (0.0-0.2) X10*3/uL Abs Immat Gran (auto) (0.00-0.03) X10*3/uL Absolute Neuts (auto) (2.0-8.3) x10*3/uL Absolute Nucleated RBC (0.0-0.012) X10*3/uL Nucleated RBC % (auto) (0.0-0.2) /100WBC Sodium (135-145) mmol/L Potassium (3.3-5.1) mmol/L Chloride (96-108) mmol/L Carbon Dioxide (22-29) mmol/L Anion Gap (12-20) BUN (9-16) mg/dL Creatinine (0.5-1.4) mg/dL Estim Creat Clear Calc Estimated GFR Random Glucose (60-115) mg/dL Calcium (8.4-10.2) mg/dL Total Bilirubin (0.0-1.0) mg/dL AST (5-31) U/L ALT (0-31) U/L Alkaline Phosphatase (39-117) U/L Total Protein (6.5-8.0) g/dL Albumin (3.5-5.0) g/dL Urine Color Yellow Urine Appearance Clear Urine pH 6.0 (5.0-9.0) Ur Specific [place] 1.010 (1.005-1.025) Urine Protein Negative (Neg-Trace) mg/dL Urine Glucose (UA) Negative (Negative) mg/dL Urine Ketones Negative (Negative) mg/dL Urine Blood Negative (Negative) Urine Nitrite Negative (Negative) Ur Leukocyte Esterase Moderate (2+) H (Negative) Urine RBC 0-2 (0-2) /HPF Urine WBC 11-20 H (0-5) /HPF Ur Squamous Epith Cells 6-10 (0-2) /HPF Urine Bacteria Trace (None Seen) Hyaline Casts 0-2 (0-2) /LPF Urine Test NEGATIVE (NEGATIVE) Urine Opiates Screen (Not Detect) Urine Fentanyl Screen (Not Detect) Ur Barbiturates Screen (Not Detect) Ur Phencyclidine Scrn (Not Detect) Ur Amphetamines Screen (Not Detect) U Benzodiazepines Scrn (Not Detect) Urine Cocaine Screen (Not Detect) U Marijuana (THC) Screen (Not Detect) Ethyl Alcohol < 10 mg/dL COVID-19 (DIAMANTE) (Negative) COVID-19 Clin Com 10/11/22 Range/Units 21:52 WBC (4.8-10.8) X10*3/uL RBC (4.20-5.50) X10*6/uL Hgb (12.0-16.0) g/dl Hct (37.0-47.0) % MCV (80.0-98.0) fL MCH (27.0-33.0) pg MCHC (31.0-35.0) g/dl RDW (11.0-16.0) % Plt Count (160-400) X10*3/uL MPV (9.4-12.3) fL Immature Gran % (Auto) (0.0-0.4) % Neut % (Auto) (45-73) % Lymph % (Auto) (20-40) % [place] % (Auto) (2-11) % Eos % (Auto) (0-4) % Baso % (Auto) (0-2) % Lymph # (Auto) (1.2-4.9) X10*3/uL [place] # (Auto) (0.1-1.2) X10*3/uL Eos # (Auto) (0.0-0.4) X10*3/uL Baso # (Auto) (0.0-0.2) X10*3/uL Abs Immat Gran (auto) (0.00-0.03) X10*3/uL Absolute Neuts (auto) (2.0-8.3) x10*3/uL Absolute Nucleated RBC (0.0-0.012) X10*3/uL Nucleated RBC % (auto) (0.0-0.2) /100WBC Sodium (135-145) mmol/L Potassium (3.3-5.1) mmol/L Chloride (96-108) mmol/L Carbon Dioxide (22-29) mmol/L Anion Gap (12-20) BUN (9-16) mg/dL Creatinine (0.5-1.4) mg/dL Estim Creat Clear Calc Estimated GFR Random Glucose (60-115) mg/dL Calcium (8.4-10.2) mg/dL Total Bilirubin (0.0-1.0) mg/dL AST (5-31) U/L ALT (0-31) U/L Alkaline Phosphatase (39-117) U/L Total Protein (6.5-8.0) g/dL Albumin (3.5-5.0) g/dL Urine Color Urine Appearance Urine pH (5.0-9.0) Ur Specific [place] (1.005-1.025) Urine Protein (Neg-Trace) mg/dL Urine Glucose (UA) (Negative) mg/dL Urine Ketones (Negative) mg/dL Urine Blood (Negative) Urine Nitrite (Negative) Ur Leukocyte Esterase (Negative) Urine RBC (0-2) /HPF Urine WBC (0-5) /HPF Ur Squamous Epith Cells (0-2) /HPF Urine Bacteria (None Seen) Hyaline Casts (0-2) /LPF Urine Test (NEGATIVE) Urine Opiates Screen Not Detected (Not Detect) Urine Fentanyl Screen Not Detected (Not Detect) Ur Barbiturates Screen Not Detected (Not Detect) Ur Phencyclidine Scrn Not Detected (Not Detect) Ur Amphetamines Screen Not Detected (Not Detect) U Benzodiazepines Scrn Not Detected (Not Detect) Urine Cocaine Screen Not Detected (Not Detect) U Marijuana (THC) Screen POSITIVE H (Not Detect) Ethyl Alcohol mg/dL COVID-19 (DIAMANTE) (Negative) COVID-19 Clin Com <Lyla Grissom MD - Last Filed: 10/12/22 05:20> Discharge Plan Discharge Clinical Impression: Acute anxiety, Bipolar disorder (manic depression) <Mary Sullivan CNP - Last Filed: 10/11/22 16:49> Patient Disposition: Home, Self-Care <Mary Sullivan CNP - Last Filed: 10/11/22 16:49> Instructions: Bipolar Disorder (ED) <Mary Sullivan CNP - Last Filed: 10/11/22 16:49> Additional Instructions: Please follow-up with your primary care physician tomorrow. If you have any worsening or new symptoms, please return to the emergency room or call 911 <Mary Sullivan CNP - Last Filed: 10/11/22 16:49> Prescriptions: No Action No Known Home Meds <Mary Sullivan CNP - Last Filed: 10/11/22 16:49> Interventions: [place]-Suicide Risk Severity Scale Last Done: 10/11/22 21:32 <Mary Sullivan CNP - Last Filed: 10/11/22 16:49>
[2022-10-11 16:47] VITALS: BP 147/87; PULSE 83; RESP 18; TEMP 36.6; O2SAT 98; BMI 34.0
[2022-10-11 20:38] LABS: MANUAL DIFF FLAG NO
[2022-10-11 20:39] LABS: Basophils Absolute Auto 0.1 X10*3/uL (0.0-0.2); Basophils Percent Auto 0.7 % (0-2); Eosinophils Absolute Auto 0.2 X10*3/uL (0.0-0.4); Eosinophils Percent Auto 2.1 % (0-4); Hematocrit 41.9 % (37.0-47.0); Hemoglobin 14.1 g/dl (12.0-16.0); Imm Gran Abs Auto 0.03 X10*3/uL (0.00-0.03); Imm Gran Pct Auto 0.3 % (0.0-0.4); Lymphocytes Absolute Auto 3.7 X10*3/uL (1.2-4.9); Lymphocytes Percent Auto 34.4 % (20-40); Mean Corpuscular HGB Conc 33.7 g/dl (31.0-35.0); Mean Corpuscular Hemoglobin 29.3 pg (27.0-33.0); Mean Corpuscular Volume 86.9 fL (80.0-98.0); Mean Platelet Volume 8.6 fL (9.4-12.3); Monocytes Absolute Auto 0.7 X10*3/uL (0.1-1.2); Monocytes Percent Auto 6.1 % (2-11); Neutrophils Absolute Auto 6.1 x10*3/uL (2.0-8.3); Neutrophils Percent Auto 56.4 % (45-73); Platelet Count 346 X10*3/uL (160-400); Red Blood Count 4.82 X10*6/uL (4.20-5.50); Red Cell Distribution Width 12.5 % (11.0-16.0); White Blood Count 10.7 X10*3/uL (4.8-10.8)
[2022-10-11 20:54] LABS: Ethanol < 10 mg/dL
[2022-10-11 20:55] LABS: COVID-19 Test Negative (Negative); IDNOW Serial# 6674DD1D
[2022-10-11 20:56] LABS: Alanine Aminotransferase 18 U/L (0-31); Albumin Level 4.3 g/dL (3.5-5.0); Alkaline Phosphatase 47 U/L (39-117); Anion Gap 14 (12-20); Aspartate Amino Transferase 15 U/L (5-31); Bilirubin Total 0.3 mg/dL (0.0-1.0); Blood Urea Nitrogen 8 mg/dL (9-16); Calcium 9.2 mg/dL (8.4-10.2); Carbon Dioxide 22 mmol/L (22-29); Chloride 108 mmol/L (96-108); Creatinine Clr Calc Pharmacy 87.4; Estimated Glomerular Filt Rate > 60; Glucose Random 84 mg/dL (60-115); Sodium 140 mmol/L (135-145); Total Protein 6.9 g/dL (6.5-8.0)
[2022-10-11] MEDS: OLANZapine 2.5 MG TABLET PO (21:28)
[2022-10-11 22:02] LABS: Appearance Urine Clear; Color Urine Yellow; Glucose Urine UA Negative (Negative); Leukocyte Esterase Urine Moderate (2+) (Negative); Nitrite Urine Negative (Negative); UMIC TRIGGER UA YES; Urine Blood Negative (Negative); Urine Ketones Negative (Negative); Urine Protein Negative (Neg-Trace)
[2022-10-11 22:03] LABS: UPreg QC Valid YES; Urine Pregnancy NEGATIVE (NEGATIVE)
[2022-10-11 22:11] LABS: Bacteria Urine Trace (None Seen); Hyaline Casts Urine 0-2 /LPF (0-2); RBC Urine 0-2 /HPF (0-2)
[2022-10-11 22:38] LABS: Amphetamine Screen Urine Not Detected (Not Detect); Barbiturates, Urine Not Detected (Not Detect); Benzodiazepines Screen Urine Not Detected (Not Detect); Cannabinoid Screen Urine POSITIVE (Not Detect); Cocaine Screen Urine Not Detected (Not Detect); Fentanyl, urine Not Detected (Not Detect); Opiate Screen Urine Not Detected (Not Detect); Phencyclidine Screen Urine Not Detected (Not Detect)
--- NOTE | 2022-10-12 06:06 | PC.NURSE ---
Patient slept through the night, no distress observed/reported, behavior non concerning, Olanzapine 2.5 mg administered @ 2127 + EFFECT, PATIENT IS ASSESSED BY CARE TEAM disposition is current provider pending psych consult, VSS, patient is currently not on any home medication per pharmacy claim history, will continue to monitor.
[2022-10-12 06:13] VITALS: BP 122/65; PULSE 67; RESP 16; TEMP 37.1; O2SAT 98
[2022-10-12 09:02] VITALS: BP 135/73; PULSE 72; RESP 16; TEMP 36.6; O2SAT 99
--- NOTE | 2022-10-12 09:17 | PC.NURSE ---
this nurse obtained report from eliel and resumed care at 9am, per eliel, patient is needing to see Geri psychiatry instructor for med eval prior to discharge. Once patient is seen patient can be discharged. Geri is aware per Eliel.
--- NOTE | 2022-10-12 12:08 | PM.PSYCN ---
History of Present Illness Date of Service: 10/12/2022 Chief Complaint: crisi need meds Reason for Consult: restarting meds for Bipolar Disorder Requesting physician: Brad Howard Discussed with referring provider: Yes Sources of Information: patient interviewed, chart reviewed and crisis/core team assessment reviewed HPI Narrative: Ms. Ravi is a 36 year-old woman with hx of Bipolar Disorder type 1 who self presented to [facility] ED reporting decreased need, increased energy, difficulty concentrating, racing thoughts all of which she is able to identify as warning symptoms of jennyfer episode. She reports she has not been on psychiatric medications for over a year. Utox positive for cannabinods. Pt seen and evaluated by care team, dispo to PHP. Pt denies SI/HI. Pt seen by this customs entry writer, she reports identifying signs of jennyfer, lack of sleep, increased energy, racing thoughts. No SI/HI. NO VH/AH. No overt delusional content noted or reported. Pt reports olanzapine was helpful but jail she felt sedated and eventually stopped it. Past Psychiatric History: Inpt: 2019 for jennyfer episode OP: none current, being referred to PHP Past med trials: only olanzapine. Pt reports she has never been on mood stabilizer. Medical Evaluation Reviewed: Yes Diagnostics Vital Signs (24Hr): Vital Signs - 24 hr 10/11/22 16:47 10/12/22 06:13 10/12/22 09:02 Temperature 98 F 98.7 F 97.8 F Pulse Rate 83 67 72 Respiratory Rate 18 16 16 Blood Pressure 147/87 H 122/65 135/73 Pulse Oximetry 98 98 99 Oxygen Delivery Method Room Air Room Air Room Air BMI result Body Mass Index 34.0 Labs 10/11/22 20:23 10/11/22 00:52 Labs: Laboratory Results - last 48 hr 10/11/22 10/11/22 10/11/22 00:52 20:23 20:23 WBC 10.7 RBC 4.82 Hgb 14.1 Hct 41.9 MCV 86.9 MCH 29.3 MCHC 33.7 RDW 12.5 Plt Count 346 MPV 8.6 L Immature Gran % (Auto) 0.3 Neut % (Auto) 56.4 Lymph % (Auto) 34.4 [place] % (Auto) 6.1 Eos % (Auto) 2.1 Baso % (Auto) 0.7 Lymph # (Auto) 3.7 [place] # (Auto) 0.7 Eos # (Auto) 0.2 Baso # (Auto) 0.1 Abs Immat Gran (auto) 0.03 Absolute Neuts (auto) 6.1 Absolute Nucleated RBC 0.000 Nucleated RBC % (auto) 0.0 Sodium 140 Potassium 4.0 Chloride 108 Carbon Dioxide 22 Anion Gap 14 BUN 8 L Creatinine 0.87 Estim Creat Clear Calc 87.4 Estimated GFR > 60 Random Glucose 84 Calcium 9.2 Total Bilirubin 0.3 AST 15 ALT 18 Alkaline Phosphatase 47 Total Protein 6.9 Albumin 4.3 Urine Color Urine Appearance Urine pH Ur Specific [place] Urine Protein Urine Glucose (UA) Urine Ketones Urine Blood Urine Nitrite Ur Leukocyte Esterase Urine RBC Urine WBC Ur Squamous Epith Cells Urine Bacteria Hyaline Casts Urine Test Urine Opiates Screen Urine Fentanyl Screen Ur Barbiturates Screen Ur Phencyclidine Scrn Ur Amphetamines Screen U Benzodiazepines Scrn Urine Cocaine Screen U Marijuana (THC) Screen Ethyl Alcohol COVID-19 (DIAMANTE) Negative COVID-19 Refinder by [facility] Com See Note 10/11/22 10/11/22 10/11/22 20:23 21:52 21:52 WBC RBC Hgb Hct MCV MCH MCHC RDW Plt Count MPV Immature Gran % (Auto) Neut % (Auto) Lymph % (Auto) [place] % (Auto) Eos % (Auto) Baso % (Auto) Lymph # (Auto) [place] # (Auto) Eos # (Auto) Baso # (Auto) Abs Immat Gran (auto) Absolute Neuts (auto) Absolute Nucleated RBC Nucleated RBC % (auto) Sodium Potassium Chloride Carbon Dioxide Anion Gap BUN Creatinine Estim Creat Clear Calc Estimated GFR Random Glucose Calcium Total Bilirubin AST ALT Alkaline Phosphatase Total Protein Albumin Urine Color Yellow Urine Appearance Clear Urine pH 6.0 Ur Specific [place] 1.010 Urine Protein Negative Urine Glucose (UA) Negative Urine Ketones Negative Urine Blood Negative Urine Nitrite Negative Ur Leukocyte Esterase Moderate (2+) H Urine RBC 0-2 Urine WBC 11-20 H Ur Squamous Epith Cells 6-10 Urine Bacteria Trace Hyaline Casts 0-2 Urine Test NEGATIVE Urine Opiates Screen Urine Fentanyl Screen Ur Barbiturates Screen Ur Phencyclidine Scrn Ur Amphetamines Screen U Benzodiazepines Scrn Urine Cocaine Screen U Marijuana (THC) Screen Ethyl Alcohol < 10 COVID-19 (DIAMANTE) COVID-19 Refinder by [facility] Com 10/11/22 21:52 WBC RBC Hgb Hct MCV MCH MCHC RDW Plt Count MPV Immature Gran % (Auto) Neut % (Auto) Lymph % (Auto) [place] % (Auto) Eos % (Auto) Baso % (Auto) Lymph # (Auto) [place] # (Auto) Eos # (Auto) Baso # (Auto) Abs Immat Gran (auto) Absolute Neuts (auto) Absolute Nucleated RBC Nucleated RBC % (auto) Sodium Potassium Chloride Carbon Dioxide Anion Gap BUN Creatinine Estim Creat Clear Calc Estimated GFR Random Glucose Calcium Total Bilirubin AST ALT Alkaline Phosphatase Total Protein Albumin Urine Color Urine Appearance Urine pH Ur Specific [place] Urine Protein Urine Glucose (UA) Urine Ketones Urine Blood Urine Nitrite Ur Leukocyte Esterase Urine RBC Urine WBC Ur Squamous Epith Cells Urine Bacteria Hyaline Casts Urine Test Urine Opiates Screen Not Detected Urine Fentanyl Screen Not Detected Ur Barbiturates Screen Not Detected Ur Phencyclidine Scrn Not Detected Ur Amphetamines Screen Not Detected U Benzodiazepines Scrn Not Detected Urine Cocaine Screen Not Detected U Marijuana (THC) Screen POSITIVE H Ethyl Alcohol COVID-19 (DIAMANTE) COVID-19 Clin Com Mental Status Exam Mental Status Exam Narrative: Appearance: wearing hospital gown, good hygiene, in NAD Behavior: cooperative Speech: clear, normal rate/rhythm/volume, spontaneous TP: linear TC: no signs of psychosis, looking for psych treatment SI: none HI: none Mood: scrabbled Affect: slightly expansive AH/VH: none Insight/judgment: fair x 2. Memory/cog: alert, oriented x 3. grossly intact to conversational testing Medications Allergies Allergies Allergy/AdvReac Type Severity Reaction Status Date / Time Penicillins Allergy Mild HIVES Verified 10/11/22 15:37 Assessment & Plan Assessment & Plan (1) Bipolar disorder (manic depression): Status: Acute Code(s): F31.9 - Bipolar disorder, unspecified Plan Ms. Ravi is a 36 year-old woman with hx of Bipolar Disorder who self presented to [facility] ED reporting signs of jennyfer including lack of sleep, racing thoughts, increased energy. No overt delusional or psychotic content noted. No SI/HI. Seen by care team, referred to PHP. Pt reports she was on olanzapine 5mg po qhs, reports some sedation with this medication jail but for now willing to continue it until she is seen by PHP. We discussed risks, benefits and alternative treatment options, she agreed if needed to take up to 10mg/day if needed. PLAN 1. sent rx to pharmacy olanzapine 5mg po BID #60. 2. No need for inpatient level of care given that there is no imminent safety concern. Total time managing care of this patient today ____ minutes.
== END 2022-10-12 12:49 | disposition home or self-care (01) ==
PROVIDERS: Emergency Provider Emergency Medicine; PCP Internal Medicine
DX: F41.9 Anxiety disorder, unspecified (principal); F31.9 Bipolar disorder, unspecified; Z20.822 Contact with and (suspected) exposure to COVID-19; E78.9 Disorder of lipoprotein metabolism, unspecified; E66.9 Obesity, unspecified; Z68.34 Body mass index [BMI] 34.0-34.9, adult; F12.90 Cannabis use, unspecified, uncomplicated
CPT/HCPCS: 36415; 80053; 80307; 81001; 81003; 81025; 82077; 85025; 87635; 99284; S9485

== ENCOUNTER 2022-10-24 12:30 | Outpatient (REF) | payer OTHER, SELFPAY ==
--- NOTE | ~2022-10-24 | XR_ITS ---
EXAMINATION: XR ANKLE, LEFT CLINICAL INFORMATION: Sprain COMPARISON: None TECHNIQUE: AP, lateral, and mortise views of the left ankle. FINDINGS: The bones and soft tissues are normal. No fracture. Alignment is anatomic. Joint spaces are maintained. No joint effusion. XR/XR ankle LT min 3V IMPRESSION: Normal left ankle.
== END 2022-10-24 12:31 | disposition home or self-care (01) ==
LOC: HO.HMGCX 12:30
PROVIDERS: PCP Internal Medicine; Visit Provider Internal Medicine
DX: S93.402A Sprain of unspecified ligament of left ankle, initial encounter (principal); X58.XXXA Exposure to other specified factors, initial encounter; Y93.9 Activity, unspecified; Y92.9 Unspecified place or not applicable; Y99.9 Unspecified external cause status
CPT/HCPCS: 73610

== ENCOUNTER 2022-11-07 08:15 | Outpatient (RCR) | payer OTHER, SELFPAY ==
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
--- NOTE | 2022-11-03 08:39 | HO.PHP ---
The clients case was reviewed and opened in treatment team
--- NOTE | 2022-11-03 15:00 | HO.PHPPROGNO ---
Subjective Subjective Date of Service: 11/03/22 Reason For Visit: bipolar disorder Medical Problems Affecting Mental Status: No Interim History: Labile mood and affect No SI, no safety concerns Would like to start mood stabilizer Medication Compliance: Intermittent Side effects from medications: No Attending Groups: Yes Review of Systems Acute medical concerns: No Medical Review of Systems: unchanged Review of Systems Review of Systems Yes all other systems are reviewed and are negative Constitutional: Reports no additional constitutional complaints Mental Status Exam Mental Status Exam Patient Appearance: Well Grooomed Patient Orientation: Person, Place, Time and Situation Level of Consciousness: Appropriate and Alert Patient Behavior: Appropriate, Cooperative, Good Eye Contact and Crying Mood Description: Depressed, Anxious and Labile Affect Description: Depressed, Anxious and Labile Patient Cognition Impaired: No Ability to Follow Directions: Excellent Speech Pattern: Clear Memory Description: Intact Hallucinations: None Delusions: Not Present Thought Process: Intact Thought Content: positive for Intact Depressive Symptoms: Increased Anxiety, Increased Irritability, Changes in Appetite, Loss of Int. in Activity, Hopelessness, Loss of Energy and Difficulty Concentrating Judgement: Fair Assessment & Plan Assessment & Plan (1) Bipolar I disorder, moderate, current or most recent episode depressed, with mixed features: Status: Acute Code(s): F31.32 - Bipolar disorder, current episode depressed, moderate Assessment and Plan: Patient presents with labile mood and affect. Depressed, anxious, tearful. No SI, feels safe. Willing to increase olanzapine from 2.5mg to a higher dose if needed, would like to start a mood stabilizer. Discussed increasing dose to 2.5mg in am, and 2.5 to 5mg at bedtime, with addition of a mood stabilizer. She was in agreement with this. Discussed lithium, depakote, trileptal, lamotrigine. Included side effects, indications of use, alternatives to treatment. Once questions were answered to her satisfaction, she is willing to try lamotrigine at this time. Plan 1. Continue with current [facility] plan of care. 2. Start lamotrigine 25mg X 14 days, to be followed by 50mg X 14 days. 3. Follow-up as per protocol. Patient educated on: diagnosis, medication risk/benefits and therapeutic strategies Informed Consent: understands Reason for contiued partial hosp. stay Substantial Risk for: harm to self, inability to function and rapid decompensation Certification I certify that partial hospital treatment is medically necessary due to the symptoms and problems resulting from the patient's mental illness and the failure to treat the patient at the partial hospital level of care would likely result in the patient requiring inpatient psychiatric care which could not be prevented at a less intensive level of care. Total time managing care of this patient today __15__ minutes. Discharge Plan Discharge Attending provider: Garret Goodson Medications: New lamotrigine 25 mg tablet See Rx Instructions .ROUTE .COMPLEX Qty: 42 0RF Rx Instructions: Take 25 mg orally (1 tab) daily for 14 days. Then, start 50 mg orally (2 tabs) for 14 days. No Action olanzapine 5 mg tablet 1 tab PO BID Stand Alone Forms: Patient Portal Discharge page Patient Education: [place] (By mouth), Lamotrigine (By mouth), Quetiapine (By mouth), Oxcarbazepine (By mouth)
--- NOTE | 2022-11-06 09:22 | PC.NURSE ---
I spoke to Sharda who stated she is not interested in the program at this time. She is interested in seeing an individual therapist and prescriber. I suggested she call her PCP to continue the medications started in the program. 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 Gemini Morin is aware and will reach out to her regarding a therapist and prescriber. [facility] staff is also aware.
--- NOTE | 2022-11-07 09:36 | HO.PHP ---
I called client and offered to make an appointment for outpatient providers. She states that she would rather call herself to set up the appointment because she has questions she wants to ask to make sure its a good fit. I gave her the phone numbers to [facility], [facility] and [facility].
== END 2022-11-07 23:59 | disposition home or self-care (01) ==
LOC: HO.PHPA 08:15
PROVIDERS: Visit Provider Psychiatry & Neurology Psychiatry
DX: F31.32 Bipolar disorder, current episode depressed, moderate (principal); F41.1 Generalized anxiety disorder; F12.10 Cannabis abuse, uncomplicated; Z79.899 Other long term (current) drug therapy
CPT/HCPCS: 90791; 90853

== ENCOUNTER → 2022-12-13 09:53 | Outpatient (BNVA) | payer OTHER, SELFPAY | PROVIDERS: PCP Internal Medicine; Visit Provider Advanced Practice Midwife | DX: Z13.89 Encounter for screening for other disorder (principal) ==

== ENCOUNTER 2023-05-25 15:33 | Outpatient (AMB) | payer OTHER, SELFPAY ==
--- NOTE | 2023-05-25 16:35 | AM.OFFWIN_ITS ---
Intake Vital Signs 05/25/23 16:54 Weight 160 lb BP 116/70 Blood Pressure Location Lt brachial Position Sitting Pulse 70 Pulse Source Pulse Oximeter Temp 97.9 F Temp Source Oral Pulse Oximetry (%) 98 Oxygen Delivery Method Room Air Intake Visit Reasons: EP, low back pain [phone] Intake Note: patient here for lower back pain(kidney area), pt states she had a UTI that started last weekend. Patient Tobacco Use Status: Current everyday Tobacco user Allergies Penicillins Allergy (Mild, Verified 12/13/22 09:55) HIVES Do you need a note to return to daycare/school/sports/work: No HPI HPI Comments History of Present Illness Details This is a 37-year-old female with a past medical history of bipolar disorder presenting for evaluation of dysuria and right flank pain that she has had for the past 7-10 days. Patient states that she has had frequent urinary tract infections and states that the urinalysis will usually look good and the culture will come back positive. Patient denies having any fevers, chills, abdominal pain, vaginal discharge or hematuria. Patient states that the right flank pain is intermittent and feels like an aching sensation. Patient has taken ibuprofen only without complete relief of her symptoms. Patient denies any previous abdominal surgeries. [facility] Medical History H/O bipolar disorder Family History Paternal Grandmother Breast cancer Mother Substance use disorder Mental health disorder Father Mental health disorder Social History Household Members: Significant Other and Children Housing: House Alcohol intake: current Alcohol intake frequency: a few times a week Patient Tobacco Use Status: Current everyday Tobacco user Cigarettes Per Day: 10 e-Cigarette/Vaping Use: Currently Using Second Hand Smoke Exposure: No service: No Current occupational status: employed Current occupation: [employer] Current occupational exposures/hazards: No Sexual orientation: Straight/Heterosexual Gender identity: Female Cognitive needs: No Hearing needs: No Vision needs: No Review of Systems Const All systems reviewed & are unremarkable except as noted in HPI and below Denies chills, Denies fatigue and Denies fever(s) Reports as per HPI, Denies urinary frequency, Denies difficulty voiding, Reports dysuria and Reports other (right flank pain) Endo Denies fatigue Physical Exam Vital Signs: Last Vital Signs Temp 97.9 F 05/25/23 16:54 Pulse 70 05/25/23 16:54 BP 116/70 05/25/23 16:54 Pulse Ox 98 05/25/23 16:54 Oxygen Delivery Method Room Air 05/25/23 16:54 Const General: cooperative, healthy appearing, comfortable and no acute distress; No ill appearing or lethargic Nutritional Appearance: well nourished Orientation/consciousness: patient oriented x3 and No lethargic Limitations: no limitations Resp Effort & Inspection: normal respiratory effort, able to speak in complete sentences and no respiratory distress Auscultation: clear to auscultation bilaterally Cardio Rate: regular rate Rhythm: regular rhythm GI Palpation (GI): Soft to palpation, Tenderness to palpation present (GI) (mild right flank tenderness, no guarding, no overt R. CVAT), no guarding and Other GI palpation findings present (no suprapubic tenderness) Auscultation: normal bowel sounds Skin General skin exam: no rashes or lesions noted Neuro General: patient oriented x3 Results AMB Urinalysis, Automated UA Leukoctes 0 Dominick/uL Last Edit by JOSEPHINE Louis on 05/25/23 16:59 UA Nitrite Negative Last Edit by Lorenzo Nath CCM on 05/25/23 16:59 UA Urobilinogen 0 mg/dL Last Edit by Lorenzo Nath CCM on 05/25/23 16: 59 UA Protein 0 mg/dL Last Edit by Lorenzo Nath CCM on 05/25/23 16:59 UA pH 7.0 Last Edit by Lorenzo Nath CCM on 05/25/23 16:59 UA Blood 9 Quinten/uL Last Edit by Lorenzo Nath CCM on 05/25/23 16:59 UA Specific [place] 1.010 Last Edit by Lorenzo Nath CCM on 05/25/23 16:59 UA Ketone Negative Last Edit by Lorenzo Nath CCM on 05/25/23 16:59 UA Bilirubin 0 mg/dL Last Edit by Lorenzo Nath CCM on 05/25/23 16:59 UA Glucose 0 mg/dL Last Edit by JOSEPHINE Louis on 05/25/23 16:59 Results Reviewed Results Reviewed: Laboratory Last Values Urine pH (Auto) 7.0 05/25/23 16:56 Specific [place] (Auto) 1.010 05/25/23 16:56 Urine Protein (Auto) 0 mg/dL 05/25/23 16:56 Glucose (UA)(Auto) 0 mg/dL 05/25/23 16:56 Urine Ketones (Auto) Negative 05/25/23 16:56 Urine Blood (Auto) 9 Quinten/uL 05/25/23 16:56 Urine Nitrite (Auto) Negative 05/25/23 16:56 Urine Bilirubin (Auto) 0 mg/dL 05/25/23 16:56 Urine Urobilinogen (Auto) 0 mg/dL 05/25/23 16:56 Leukocyte Esterase (Auto) 0 Dominick/uL 05/25/23 16:56 Reviewed UA with patient. Culture ordered. Assessment & Plan Assessment & Plan (1) Dysuria: Comment: Urine culture pending; no acute abdominal pain. Code(s): R30.0 - Dysuria Plan: Urine culture pending; patient to continue ibuprofen OTC as needed for right flank pain, increase water intake daily and is instructed to go to ED if pain worsens significantly and is not improved with ibuprofen alone. Orders: Orders Urine Culture Today R30.0 - Dysuria AMB Urinalysis Automated Today Z13.9 - Encounter for screening, unspecified Coding Level of Care Code Est Pt Level 3 (06665) Diagnoses Dysuria R30.0 Time Spent (min) 20
[2023-05-25 16:54] VITALS: BP 116/70; PULSE 70; TEMP 36.6; O2SAT 98
== END 2023-05-25 17:25 | disposition home or self-care (01) ==
PROVIDERS: PCP Internal Medicine; Visit Provider Physician Assistant
DX: R30.0 Dysuria (principal)
CPT/HCPCS: 81003; 99213

== ENCOUNTER 2023-05-26 11:31 | Outpatient (REF) | payer OTHER, SELFPAY | END 2023-05-26 11:32 | disposition home or self-care (01) | LOC: HO.HMGCLNP 11:31 | PROVIDERS: Visit Provider Physician Assistant | DX: R30.0 Dysuria (principal) | CPT/HCPCS: 87086 ==

== ENCOUNTER 2023-06-26 14:27 | Outpatient (AMB) | payer OTHER, SELFPAY ==
[2023-06-26 14:31] VITALS: BP 122/80; PULSE 99; O2SAT 99; BMI 30.8
--- NOTE | 2023-06-26 14:31 | MHC.PC.OV ---
Vital Signs 06/26/23 14:31 Height 5 ft 1 in Weight 163 lb 4 oz BMI 30.8 BP 122/80 Blood Pressure Location Lt brachial Position Sitting Pulse 99 Pulse Source Pulse Oximeter Pulse Oximetry (%) 99 Oxygen Delivery Method Room Air Intake Visit Reasons: Annual PE Allergies Penicillins Allergy (Mild, Verified 06/26/23 14:31) HIVES Medication List - Last Reconciled 06/26/23 by Eloisa Rodríguez MD lamotrigine Take 25 mg orally (1 tab) daily for 14 days. Then, start 50 mg orally (2 tabs) for 14 days. lamotrigine 25 mg PO BID 30 days Tobacco use date assessed: 06/26/23 Dental Screening Dental Screen Date: 06/26/23 Did you have a dental visit in the last 12 months?: Yes Did you have a dental problem in the last 6 months where you did not have access to dental care?: No Was dental information given to patient?: Patient has dentist HPI Annual PE HPI Details Patient is 37-year-old female came in today for physical examination Patient have a bipolar disorder currently she is seeing a psych med prescriber and is taking lamotrigine Patient has also modified her diet and lost some weight she is feeling much better She feels she is sensitive to gluten Her LDL was elevated at 163 last set of labs, we will be repeating labs again She is not interested in medication BMI is still elevated patient is trying to lose weight. OBGYN care through [facility]. [facility] Medical History H/O bipolar disorder Family History Paternal Grandmother Breast cancer Mother Substance use disorder Mental health disorder Father Mental health disorder Social History Household Members: Significant Other and Children Housing: House Alcohol intake: current Alcohol intake frequency: a few times a week Patient Tobacco Use Status: Current everyday Tobacco user Cigarettes Per Day: 10 e-Cigarette/Vaping Use: Currently Using Second Hand Smoke Exposure: No service: No Current occupational status: employed Current occupation: [employer] Current occupational exposures/hazards: No Sexual orientation: Straight/Heterosexual Gender identity: Female Cognitive needs: No Hearing needs: No Vision needs: No Questionnaire PHQ-9 Over the last 2 weeks, how often have you been bothered by any of the following problems? 50209 - PHQ-9 Billing: Patient declined-do not bill Source: Developed by Drs. Marquise Mcallister, Francesca Rothman, Scott Natarajan and colleagues, with an educational alisha from [employer]. AUDIT C Alcohol Use Questionnaire (AUDIT-C) 1. How often do you have a drink containing alcohol?: Never 3. How often do you have six or more drinks on one occasion?: Never Total Score: 0 Score Reviewed/Action Taken: Yes Review of Systems Const Denies chills, Denies fever(s) and Denies headache(s) Eyes Denies blurry vision ENT Denies headache(s), Denies nasal discharge, Denies nasal obstruction, Denies odynophagia and Denies sinus pain Card Denies chest pain at rest and Denies chest pain with activity Resp Denies cough and Denies hemoptysis GI Denies diarrhea, Denies odynophagia, Denies vomiting and Denies hematemesis Reports as per HPI Musc Denies abnormal gait Skin/Breast Reports as per HPI Neuro Denies Neuro-related abnormal movements, Denies Abnormal speech present, Denies abnormal gait, Denies headache(s) and Denies Sensory deficit (Neuro) Psych Denies mood swings and Denies paranoia Endo Reports as per HPI Donis/Lymph Reports as per HPI Aller/Immun Reports as per HPI Physical exam (Primary Care) Vital Signs: Last Vital Signs Pulse 99 06/26/23 14:31 BP 122/80 06/26/23 14:31 Pulse Ox 99 06/26/23 14:31 Oxygen Delivery Method Room Air 06/26/23 14:31 BMI result Body Mass Index 30.8 Tobacco/Smoking Status: Tobacco use Status Tobacco use date assessed 06/26/23 06/26/23 14:32 Patient Tobacco Use Status Current everyday Tobacco 06/26/23 14:32 e-Cigarette/Vaping Use Currently Using 06/26/23 14:32 Const General: cooperative, comfortable and no acute distress Orientation/consciousness: patient oriented x3 HENMT Head: Yes normocephalic and Yes atraumatic Eyes General: appearance normal, both eyes and all related structures Pupils: Equal, round and reactive pupils present EOM: EOMs intact bilaterally Neck Neck: Yes supple and No lymphadenopathy Thyroid: Thyroid normal Lymphatic: no lymphadenopathy noted Resp Effort & Inspection: normal respiratory effort and able to speak in complete sentences Auscultation: clear to auscultation bilaterally Cardio Heart sounds: S1 normal heart sound present and S2 normal heart sound present GI Palpation (GI): Soft to palpation and nontender Auscultation: normal bowel sounds General: Yes no CVA tenderness Back/Spine/Pelvis Back: no CVA tenderness Skin General skin exam: elasticity normal and turgor normal Neuro General: patient oriented x3 and gait normal Cranial nerves: Yes Equal, round and reactive pupils present Speech: No Abnormal speech present Sensory Exam: No Sensory deficit (Neuro) Coordination: tandem gait normal and Romberg test negative Extrem General: Yes normal exam except as noted and No edema Assessment and Plan Assessment & Plan (1) Encounter for general adult medical examination with abnormal findings: Code(s): Z00.01 - Encounter for general adult medical examination with abnormal findings (2) Bipolar disorder (manic depression): Code(s): F31.9 - Bipolar disorder, unspecified Qualifiers: Active/Remission status: in full remission Most recent bipolar episode type: mixed Qualified Code(s): F31.78 - Bipolar disorder, in full remission, most recent episode mixed (3) Obesity (BMI 30.0-34.9): Code(s): E66.9 - Obesity, unspecified (4) Lipid disorder: Comment: Make healthy food choices . Eat lots of fruits, vegetables, whole grains, and low-fat dairy products. Limit the amount of meat and fried or fatty foods that you eat. Be active Walk, garden, or do something active for 30 minutes or more on most days of the week. If you smoke, stop smoking. Smoking increases the chance of heart attack or stroke, or develop cancer.If you are over weight, Lose weight, Being overweight increases the risk of many health problems. Avoid alcohol Alcohol can increase blood sugar and blood pressure. Code(s): E78.9 - Disorder of lipoprotein metabolism, unspecified Plan Patient is 37-year-old female came in today for physical examination Patient have a bipolar disorder currently she is seeing a psych med prescriber and is taking lamotrigine Patient has also modified her diet and lost some weight she is feeling much better She feels she is sensitive to gluten Her LDL was elevated at 163 last set of labs, we will be repeating labs again She is not interested in medication BMI is still elevated patient is trying to lose weight. OBGYN care through [facility]. Orders: Orders TSH reflex Free T4 Today E66.9 - Obesity, unspecified, E78.9 - Disorder of lipoprotein metabolism, unspecified, F31.9 - Bipolar disorder, unspecified, Z00.01 - Encounter for general adult medical examination with abnormal findings Complete Blood Count Auto Diff Today E66.9 - Obesity, unspecified, E78.9 - Disorder of lipoprotein metabolism, unspecified, F31.9 - Bipolar disorder, unspecified, Z00.01 - Encounter for general adult medical examination with abnormal findings Comprehensive Roy. Panel Fast Today E66.9 - Obesity, unspecified, E78.9 - Disorder of lipoprotein metabolism, unspecified, F31.9 - Bipolar disorder, unspecified, Z00.01 - Encounter for general adult medical examination with abnormal findings Lipid Panel Today E66.9 - Obesity, unspecified, E78.9 - Disorder of lipoprotein metabolism, unspecified, F31.9 - Bipolar disorder, unspecified, Z00.01 - Encounter for general adult medical examination with abnormal findings Coding Level of Care Code Est Pt Prev Care 18-39y(41476) Diagnoses Encounter for general adult medical examination with abnormal findings Z00.01 Bipolar disorder, in full remission, most recent episode mixed F31.78 Active/Remission status: in full remission Most recent bipolar episode type: mixed Obesity (BMI 30.0-34.9) E66.9 Lipid disorder E78.9
== END 2023-06-26 15:39 | disposition home or self-care (01) ==
PROVIDERS: Visit Provider Internal Medicine
DX: Z00.00 Encounter for general adult medical examination without abnormal findings (principal); F31.78 Bipolar disorder, in full remission, most recent episode mixed; E66.9 Obesity, unspecified; Z68.30 Body mass index [BMI] 30.0-30.9, adult; E78.9 Disorder of lipoprotein metabolism, unspecified
CPT/HCPCS: 99395

== ENCOUNTER 2024-07-29 11:59 | Outpatient (AMB) | payer OTHER, SELFPAY ==
--- NOTE | 2024-07-29 12:01 | MHC.PC.OV ---
Vital Signs 07/29/24 12:02 Height 5 ft 1 in Weight 178 lb 6 oz BMI 33.7 BP 122/78 Blood Pressure Location Rt brachial Position Sitting Pulse 70 Pulse Source Pulse Oximeter Pulse Oximetry (%) 98 Oxygen Delivery Method Room Air Intake Visit Reasons: Follow Up Allergies Penicillins Allergy (Mild, Verified 07/29/24 12:02) HIVES Medication List - Last Reconciled 07/29/24 by Eloisa Rodríguez MD lamotrigine 25 mg PO BID 30 days Tobacco use date assessed: 07/29/24 Dental Screening Dental Screen Date: 07/29/24 Did you have a dental visit in the last 12 months?: Yes Did you have a dental problem in the last 6 months where you did not have access to dental care?: No Was dental information given to patient?: Patient has dentist HPI Follow Up HPI Details Chief Complaint The patient presents for physical exam and medication management and a prescription refill. Health Maintenance - Recommended flu vaccine, administered during this visit. - Screening labs ordered for metabolic and general health assessment. - Encouraged adherence to exercise regimen, such as Pilates, for pain management. - Advised to follow up with OBGYN for delayed annual examination. Assessment and Plan 38-year-old female with history of bipolar disorder presenting for medication management and prescription refill. Patient reports losing touch with her psychiatric medication prescriber due to insurance reasons, Lamotrigine and Abilify have been adjusted previously with noted improvement in mental health symptoms. She expresses concern over previously experienced severe back pain, attributed to sciatica, with current management through chiropractic adjustments and Pilates. Familial history of breast cancer is acknowledged in grandmother in her 70s, but no immediate signs or symptoms reported. Problem Based Plan: 1. Bipolar Disorder: F31.9 Content and Plan: The patient is currently on Lamotrigine and Abilify. It was noted that adherence interruptions occurred due to insurance-related issues. Order has been placed for medication refills, and dosing confirmed at Lamotrigine 100 mg and Abilify 2 mg. The patient reports improvement with current dosing. Plan includes continued monitoring of mental health symptoms and follow up once financial situation allows resumption with original provider. 2. Sciatica: M54.3 Content and Plan: The patient had previous episodes of significant lower back pain associated with sciatica, now managed with care team assistant and regular Pilates. Continued these interventions with apparent improvement. No further acute intervention required at this time, but patient is advised to return if symptoms recur or worsen. 3- obesity, need to lose weight Patient Instructions - Proceed with prescribed medications of Lamotrigine and Abilify as directed. - Undergo flu vaccination administered today. - Follow up on delayed OBGYN appointment for annual examination. - Continue chiropractic adjustments and Pilates for back health. - Schedule and attend blood work this week as ordered. - Report any emergent symptoms or concerns regarding breast health. [facility] Medical History H/O bipolar disorder Family History Paternal Grandmother Breast cancer Mother Substance use disorder Mental health disorder Father Mental health disorder Social History Household Members: Significant Other and Children Housing: House Alcohol intake: current Alcohol intake frequency: a few times a week Patient Tobacco Use Status: Current everyday Tobacco user Cigarettes Per Day: 10 e-Cigarette/Vaping Use: Currently Using Second Hand Smoke Exposure: No service: No Current occupational status: employed Current occupation: [employer] Current occupational exposures/hazards: No Sexual orientation: Straight/Heterosexual Gender identity: Female Cognitive needs: No Hearing needs: No Vision needs: No Questionnaire PHQ-9 Over the last 2 weeks, how often have you been bothered by any of the following problems? 1. Little interest or pleasure in doing things: not at all 2. Feeling down, depressed, or hopeless: several days 3. Trouble falling or staying asleep, or sleeping too much: several days 4. Feeling tired or having little energy: several days 5. Poor appetite or overeating: not at all 6. Feeling bad about yourself - or that you are a failure or have let yourself or your family down: not at all 7. Trouble concentrating on things, such as reading the newspaper or watching television: more than half the days 8. Moving or speaking so slowly that other people could have noticed. Or the opposite - being so fidgety or restless that you have been moving around a lot more than usual: not at all 9. Thoughts that you would be better off or of hurting yourself in some way: not at all Total score: 5 Depression Screening Interpretation: Negative Depression Screening Done: Yes 96389 - PHQ-9 Billing: Yes Source: Developed by Drs. Marquise Mcallister, Francesca Rothman, Scott Natarajan and colleagues, with an educational alisha from [employer]. Thrive Questionnaire Date Thrive assessed: 07/29/24 I am a: Patient What is your living situation today?: I have a steady place to live Within the past 12 months, did the food you bought not last and you didn't have the money to get more?: Sometimes True Within the past 12 months, did you worry whether your food would run out before you got money to buy more?: Sometimes True Do you have trouble paying for medicines?: No Do you have trouble getting transportation to medical appointments?: No Do you have trouble paying your heating and electricity bill?: No Do you have trouble taking care of your child, family member or friend?: Yes Do you have trouble with day-to-day activities such as bathing, preparing meals, shopping, managing finances, etc.?: No Are you currently unemployed and looking for a job?: No Are you interested in more education?: No Please select the resources that you would like help with: Care for elder or disabled Currently or been in a relationship where the following occur: No concerns reported THRIVE Score: 2 AUDIT C Alcohol Use Questionnaire (AUDIT-C) 1. How often do you have a drink containing alcohol?: 2-3 times a week 2. How many drinks containing alcohol do you have on a typical day when you are drinking?: 1 or 2 3. How often do you have six or more drinks on one occasion?: Less than monthly Total Score: 4 Score Reviewed/Action Taken: Yes JAMES-7 AMB Questionnaire JAMES-7 Date JAMES - 7 assessed: 07/29/24 Feeling nervous, anxious, or on edge: 2 = More than half the days Not being able to stop or control worryin = Several days Worrying too much about different things: 2 = More than half the days Trouble relaxin = Several days Being so restless that it is hard to sit still: 3 = Nearly every day Becoming easily annoyed or irritable: 2 = More than half the days Feeling afraid as if something awful might happen: 1 = Several days Total JAMES-7 score (0-4 normal; 5-9 mild; 10-14 moderate; 15-21 severe): 12 Source: Developed by Drs. Marquise Mcallister, Francesca Rothman, Scott Natarajan and colleagues, with an educational alisha from [employer]. JAMES-7 Assessment Billing JAMES-7 Assessment Tool: JAMES-7 Assessment 47936 Review of Systems Const Denies chills, Denies fever(s) and Denies headache(s) Eyes Denies blurry vision ENT Denies headache(s), Denies nasal discharge, Denies nasal obstruction, Denies odynophagia and Denies sinus pain Card Denies chest pain at rest and Denies chest pain with activity Resp Denies cough and Denies hemoptysis GI Denies diarrhea, Denies odynophagia, Denies vomiting and Denies hematemesis Reports as per HPI Musc Denies abnormal gait Skin/Breast Reports as per HPI Neuro Denies Neuro-related abnormal movements, Denies Abnormal speech present, Denies abnormal gait, Denies headache(s) and Denies Sensory deficit (Neuro) Psych Denies mood swings and Denies paranoia Endo Reports as per HPI Donis/Lymph Reports as per HPI Aller/Immun Reports as per HPI Physical exam (Primary Care) Vital Signs: Last Vital Signs Pulse 70 07/29/24 12:02 BP 122/78 07/29/24 12:02 Pulse Ox 98 07/29/24 12:02 Oxygen Delivery Method Room Air 07/29/24 12:02 BMI result Body Mass Index 33.7 Tobacco/Smoking Status: Tobacco use Status Tobacco use date assessed 07/29/24 07/29/24 12:09 Patient Tobacco Use Status Current everyday Tobacco 07/29/24 12:09 e-Cigarette/Vaping Use Currently Using 07/29/24 12:09 PHQ-9: PHQ-9 Score PHQ-9: Total score 5 07/29/24 12:35 Depression Screening Interpretation: Negative Thrive Assessment: Date of Thrive Assessment Date Thrive assessed 07/29/24 07/29/24 12:14 Currently or been in a relationship where the following occur: No concerns reported Const General: cooperative, comfortable and no acute distress Orientation/consciousness: patient oriented x3 HENMT Head: Yes normocephalic and Yes atraumatic Eyes General: appearance normal, both eyes and all related structures Pupils: Equal, round and reactive pupils present EOM: EOMs intact bilaterally Neck Neck: Yes supple and No lymphadenopathy Thyroid: Thyroid normal Lymphatic: no lymphadenopathy noted Chest Breast/axilla palpation: normal palpation of the breasts Resp Effort & Inspection: normal respiratory effort and able to speak in complete sentences Auscultation: clear to auscultation bilaterally Cardio Heart sounds: S1 normal heart sound present and S2 normal heart sound present GI Palpation (GI): Soft to palpation and nontender Auscultation: normal bowel sounds General: Yes no CVA tenderness Back/Spine/Pelvis Back: no CVA tenderness Skin General skin exam: elasticity normal and turgor normal Neuro General: patient oriented x3 and gait normal Cranial nerves: Yes Equal, round and reactive pupils present Speech: No Abnormal speech present Sensory Exam: No Sensory deficit (Neuro) Coordination: tandem gait normal and Romberg test negative Extrem General: Yes normal exam except as noted and No edema Office Procedures Flu Questionnaire Does the patient have a severe egg allergy?: No Does the patient have severe life threatening allergies?: No Does the patient have a fever or illness today?: No Has the patient ever had Guillain-Tanner Syndrome?: No Has the patient ever had any past reaction to a flu shot?: No Immunizations Fluarix Triv [id number] (PF) 45 mcg (15 mcg x 3)/0.5 mL IM syringe Performing Provider: Eloisa Rodríguez MD Performing Location: [facility] Administered by: La Ibrahim CMA on 07/29/24 12:42 Dose Route Admin Location Dispensed Lot Number Expiration Date [facility] [employer] 0.5 mL IM Right Deltoid 0.5 mL [id number] 02/23/25 [id number] [employer] VIS Given Date VIS Provided VIS Publication Date 07/29/24 Single Vaccine 21 Eligibility Eligibility Date Funding Source Not [facility] Eligible 07/29/24 Private Coding Level of Care Code Est Pt Level 3 (07553) Est Pt Prev Care 18-39y(23904) Diagnoses Encounter for general adult medical examination with abnormal findings Z00.01 Obesity (BMI 30.0-34.9) E66.9 Bipolar disorder, in full remission, most recent episode mixed F31.78 Active/Remission status: in full remission Most recent bipolar episode type: mixed JAMES (generalized anxiety disorder) F41.1 History of sciatica Z86.69 Additional Codes JAMES-7 Assessment Billing - JAMES-7 Assessment Tool: JAMES-7 Assessment 69716 ([id number]) PHQ-9 - 72340 - PHQ-9 Billing: Yes ([id number]) Assessment & Plan Assessment & Plan (1) Encounter for general adult medical examination with abnormal findings: Code(s): Z00.01 - Encounter for general adult medical examination with abnormal findings Category: Medical (2) Obesity (BMI 30.0-34.9): Code(s): E66.9 - Obesity, unspecified Category: Medical (3) Bipolar disorder (manic depression): Code(s): F31.9 - Bipolar disorder, unspecified Category: Medical Qualifiers: Active/Remission status: in full remission Most recent bipolar episode type: mixed Qualified Code(s): F31.78 - Bipolar disorder, in full remission, most recent episode mixed (4) JAMES (generalized anxiety disorder): Code(s): F41.1 - Generalized anxiety disorder Category: Medical (5) History of sciatica: Code(s): Z86.69 - Personal history of other diseases of the nervous system and sense organs Category: Medical Plan Chief Complaint The patient presents for physical exam and medication management and a prescription refill. Health Maintenance - Recommended flu vaccine, administered during this visit. - Screening labs ordered for metabolic and general health assessment. - Encouraged adherence to exercise regimen, such as Pilates, for pain management. - Advised to follow up with OBGYN for delayed annual examination. Assessment and Plan 38-year-old female with history of bipolar disorder presenting for medication management and prescription refill. Patient reports losing touch with her psychiatric medication prescriber due to insurance reasons, Lamotrigine and Abilify have been adjusted previously with noted improvement in mental health symptoms. She expresses concern over previously experienced severe back pain, attributed to sciatica, with current management through chiropractic adjustments and Pilates. Familial history of breast cancer is acknowledged in grandmother in her 70s, but no immediate signs or symptoms reported. Problem Based Plan: 1. Bipolar Disorder: F31.9 Content and Plan: The patient is currently on Lamotrigine and Abilify. It was noted that adherence interruptions occurred due to insurance-related issues. Order has been placed for medication refills, and dosing confirmed at Lamotrigine 100 mg and Abilify 2 mg. The patient reports improvement with current dosing. Plan includes continued monitoring of mental health symptoms and follow up once financial situation allows resumption with original provider. 2. Sciatica: M54.3 Content and Plan: The patient had previous episodes of significant lower back pain associated with sciatica, now managed with care team assistant and regular Pilates. Continued these interventions with apparent improvement. No further acute intervention required at this time, but patient is advised to return if symptoms recur or worsen. 3- obesity, need to lose weight Patient Instructions - Proceed with prescribed medications of Lamotrigine and Abilify as directed. - Undergo flu vaccination administered today. - Follow up on delayed OBGYN appointment for annual examination. - Continue chiropractic adjustments and Pilates for back health. - Schedule and attend blood work this week as ordered. - Report any emergent symptoms or concerns regarding breast health. Orders: Orders Complete Blood Count Auto Diff Today E66.9 - Obesity, unspecified, F31.78 - Bipolar disorder, in full remission, most recent episode mixed, F41.1 - Generalized anxiety disorder, Z00.01 - Encounter for general adult medical examination with abnormal findings Lipid Panel Today E66.9 - Obesity, unspecified, F31.78 - Bipolar disorder, in full remission, most recent episode mixed, F41.1 - Generalized anxiety disorder, Z00.01 - Encounter for general adult medical examination with abnormal findings TSH reflex Free T4 Today E66.9 - Obesity, unspecified, F31.78 - Bipolar disorder, in full remission, most recent episode mixed, F41.1 - Generalized anxiety disorder, Z00.01 - Encounter for general adult medical examination with abnormal findings Influenza [id number] Immunization Today Z23 - Encounter for immunization Comprehensive [place]. Panel Fast Today E66.9 - Obesity, unspecified, F31.78 - Bipolar disorder, in full remission, most recent episode mixed, F41.1 - Generalized anxiety disorder, Z00.01 - Encounter for general adult medical examination with abnormal findings Medications: New aripiprazole (Abilify) 2 mg PO BEDTIME 90 tabs 0RF Changed From lamotrigine 25 mg PO BID 30 days 60 tabs 1RF To lamotrigine 100 mg PO ONCE 30 tabs 1RF 30 days
[2024-07-29 12:02] VITALS: BP 122/78; PULSE 70; O2SAT 98; BMI 33.7
== END 2024-07-29 12:41 | disposition home or self-care (01) ==
PROVIDERS: PCP Internal Medicine; Visit Provider Internal Medicine
DX: Z00.01 Encounter for general adult medical examination with abnormal findings (principal); E66.9 Obesity, unspecified; F31.78 Bipolar disorder, in full remission, most recent episode mixed; Z68.33 Body mass index [BMI] 33.0-33.9, adult; F41.1 Generalized anxiety disorder; Z86.69 Personal history of other diseases of the nervous system and sense organs; Z23 Encounter for immunization

== ENCOUNTER → 2024-07-29 11:59 | Outpatient (BNVA) | payer SELFPAY | PROVIDERS: PCP Internal Medicine; Visit Provider Internal Medicine | DX: Z00.01 Encounter for general adult medical examination with abnormal findings (principal); Z23 Encounter for immunization; E66.9 Obesity, unspecified; Z68.33 Body mass index [BMI] 33.0-33.9, adult; F31.78 Bipolar disorder, in full remission, most recent episode mixed; F41.1 Generalized anxiety disorder; Z86.69 Personal history of other diseases of the nervous system and sense organs; Z79.899 Other long term (current) drug therapy | CPT/HCPCS: 90471; 90656; 96127 ==